=== PATIENT | female | born 1990 | race Caucasian/White ===

== ENCOUNTER 2018-08-10 11:52 | Emergency (ER) | payer OTHER ==
--- NOTE | 2018-08-10 12:13 | EDPHY ---
H & P Time Seen by Provider: 08/10/18 12:10 HPI/ROS: Chief complaint. Headache HPI. Patient is 20-year-old female with history of migraines presents with headache for 5 days. Typical migraine especially at onset. She does have some frontal forehead pressure. No fever. She wonders could she have a sinus infection. She has slight nausea. No change in her vision and occasionally she will get flashes in her eyes when headache Star but not this time. Vision is been slightly blurry with working on a computer last few days. No chest pain or shortness of breath. No abdominal pain. She has been using sumatriptan , Sudafed, Advil and Tylenol with inadequate relief. Denies focal weakness or paresthesias. ROS 10 systems were reviewed and negative with the exception of the elements mentioned in the history of present illness Past Medical/Surgical History: Migraines, genital herpes Social History: Single, nonsmoker, no alcohol Smoking Status: Never smoked Physical Exam: General Appearance: Alert well-developed female mild distress vital signs are stable though initial blood pressure is 151/110 Eyes: Pupils equal and round no pallor or injection. ENT, tympanic membranes are normal. Pharynx without injection. Respiratory: There are no retractions, lungs are clear to auscultation. Cardiovascular: Regular rate and rhythm. Gastrointestinal: Abdomen is soft and nontender, no masses, bowel sounds normal. Neurological: Awake and alert, sensory and motor exams grossly normal. Skin: Warm and dry, no rashes. Musculoskeletal: Neck is supple nontender. Extremities symmetrical, full range of motion. Psychiatric: Patient is oriented X 3, there is no agitation. Constitutional: Initial Vital Signs Temperature (C) 37.1 C 08/10/18 12:03 Heart Rate 79 08/10/18 12:03 Respiratory Rate 18 08/10/18 12:03 Blood Pressure 151/110 H 08/10/18 12:03 O2 Sat (%) 97 08/10/18 12:03 O2 Delivery Mode Room Air Allergies/Adverse Reactions: No Known Allergies Allergy (Unverified 08/10/18 12:02) Home Medications: Medication Instructions Recorded Amoxicillin Trihydrate [Amoxil] 500 mg PO TID 7 Days cap 08/10/18 Bcp 08/10/18 Flonase Nasal [place] 08/10/18 Sumatriptan 01/13/19 Medical Decision Making Procedures: IV normal saline. Reglan, Benadryl, Toradol IV ED Course/Re-evaluation: Re-evaluation 1:30 p.m. Patient is improved. Headache is much better. She feels well to go home. She will have a ride with her mother because of her medication given. Patient and I discussed treatment plan including criteria for return importance of follow-up and further evaluation. She expresses understanding and agreement Differential Diagnosis: Migraine headache verses sinusitis. - Data Points Medications Given: Discontinued Medications Diphenhydramine HCl (Benadryl Injection) 25 mg IVP EDNOW ONE Stop: 08/10/18 12:26 Last Admin: 08/10/18 12:36 Dose: 25 mg Sodium Chloride (Ns) 1,000 mls @ 0 mls/hr IV ONCE ONE; Wide Open PRN Reason: Protocol Stop: 08/10/18 12:26 Last Admin: 08/10/18 12:36 Dose: 1,000 mls Ketorolac Tromethamine (Toradol) 30 mg IVP EDNOW ONE Stop: 08/10/18 12:26 Last Admin: 08/10/18 12:36 Dose: 30 mg Metoclopramide HCl (Reglan Injection) 10 mg IVP EDNOW ONE Stop: 08/10/18 12:26 Last Admin: 08/10/18 12:36 Dose: 10 mg Departure - Departure Disposition: Home, Routine, Self-Care Clinical Impression: Migraine headache Qualifiers: Migraine type: without aura Status migrainosus presence: without status migrainosus Intractability: not intractable Qualified Code(s): G43.009 - Migraine without aura, not intractable, without status migrainosus Sinusitis Qualifiers: Sinusitis location: frontal Chronicity: acute Recurrence: not specified as recurrent Qualified Code(s): J01.10 - Acute frontal sinusitis, unspecified Condition: Good Instructions: Migraine Headache (ED), Sinusitis (ED) Additional Instructions: May continue medication for headache as needed For sinusitis continue Flonase and decongestants. Amoxicillin as antibiotic Return for worsening symptoms Recheck in 2 days if not improved Referrals: Nic Hilliard, PAC [Primary Care Provider] - 2-3 days, if not improved Prescriptions: Amoxicillin Trihydrate [Amoxil] 500 mg PO TID 7 Days cap
[2018-08-10] MEDS ORDERED: NS 1,000 ML IV ONE (12:25)
[2018-08-10] MEDS ORDERED: METOCLOPRAMIDE 10 MG/2 ML VIAL IVP ONE (12:25)
[2018-08-10] MEDS ORDERED: KETOROLAC 30 MG/1 ML SDV IVP ONE (12:25)
[2018-08-10 13:54] VITALS: BP 128/88
== END 2018-08-10 13:46 | disposition home or self-care (01) ==
LOC: CED 11:52
DX: G43.009 Migraine without aura, not intractable, without status migrainosus (principal); J01.10 Acute frontal sinusitis, unspecified; E86.9 Volume depletion, unspecified
CPT/HCPCS: 96361-ER; 96374-ER; 96375-ER; 99284-ER; J1200; J1885; J2765